=== PATIENT | female | born 1960 | race Caucasian/White ===

== ENCOUNTER → 2017-11-05 14:55 | Outpatient (CLI) | payer OTHER, MEDICAID, SELFPAY ==
[2017-11-05 15:35] LABS: Add Manual Diff / Slide Review NO; Basophils Percent Auto 0.5 % (0-2); Eosinophils Percent Auto 1.4 % (2-4); Hematocrit 42.8 % (36-46); Hemoglobin 14.6 g/dL (12.0-16.0); Lymphocytes Percent Auto 23.6 % (25-40); Mean Corpuscular HGB Conc 34.2 % (30-36); Mean Corpuscular Hemoglobin 29.5 PG (26-34); Mean Corpuscular Volume 86.1 fL (80-100); Monocytes Percent Auto 5.1 % (3-14); Neutrophils Absolute Auto 3900 /uL (3000-5900); Neutrophils Percent Auto 69.4 % (50-75); Platelet Count 229 X10^3/uL (150-400); Red Blood Cell Count 4.97 X10^6/uL (4.0-5.2); Red Cell Distribution Width 13.4 % (11.6-14.8); White Blood Cell Count 5.6 X10^3/uL (4.5-11.0)
[2017-11-07 14:27] LABS: Erythropoietin 8.1 mIU/mL (2.6-18.5)
== END ==
PROVIDERS: PCP Family Medicine; Visit Provider Hospitalist
DX: R06.02 Shortness of breath (principal)
CPT/HCPCS: 36415; 82668; 85025

== ENCOUNTER → 2021-10-25 16:58 | Outpatient (CLI) | payer OTHER, SELFPAY ==
--- NOTE | 2021-10-25 17:00 | DI.MRI.S_ITS ---
PROCEDURE: MR CERVICAL SPINE WO CON INDICATIONS: CHRONIC NECK PAIN TECHNIQUE: Noncontrast sagittal T1 spin echo and T2 fast spin echo, sagittal STIR, foraminal oblique sagittal T2 fast spin echo, and axial gradient echo or T2 fast spin echo through the cervical spine. COMPARISON: None. FINDINGS: Image quality: Excellent. Alignment and Curvature: There is normal bony alignment. Bone Marrow: Marrow demonstrates normal overall signal. Spinal Cord: Visualized spinal cord has normal size and signal. No cerebellar tonsillar herniation. Regional Soft Tissues: No paravertebral masses. Prevertebral soft tissues are normal in thickness. C2-C3: No spinal canal or neural foraminal stenosis. C3-C4: No spinal canal or neural foraminal stenosis. C4-C5: No spinal canal stenosis. Facet and uncovertebral hypertrophy combine to produce moderate-severe bilateral neural foraminal narrowing. C5-C6: Posterior disc osteophyte complex flattens the ventral thecal sac without mass effect upon the cord. Facet and uncovertebral hypertrophy combine to produce moderate to severe bilateral neural foraminal stenosis. C6-C7: Posterior disc osteophyte complex without mass effect upon the cord. Moderate to severe neural foraminal narrowing due to facet and uncovertebral hypertrophy. C7-T1: No spinal canal or neural foraminal stenosis. IMPRESSION: Moderate to severe neural foraminal stenosis bilaterally from C4-C5 through C6-C7. Dictated by: Panda Mares M.D. on 10/26/2021 at 15:20 Approved by: Panda Mares M.D. on 10/26/2021 at 15:22
== END ==
PROVIDERS: PCP Family Medicine; Referring Provider Student in an Organized Health Care Education/Training Program; Visit Provider Student in an Organized Health Care Education/Training Program
DX: M99.51 Intervertebral disc stenosis of neural canal of cervical region (principal); M54.2 Cervicalgia; G89.29 Other chronic pain; V89.2XXD Person injured in unspecified motor-vehicle accident, traffic, subsequent encounter
CPT/HCPCS: 72141

== ENCOUNTER → 2021-11-01 15:40 | Outpatient (CLI) | payer OTHER, SELFPAY ==
--- NOTE | 2021-11-01 15:43 | DI.CT.S_ITS ---
PROCEDURE: CT CERVICAL SPINE WO CON INDICATIONS: Cervicalgia TECHNIQUE: Noncontrast 3 mm thick sections acquired from the skull base to the T4 level. Sagittal and coronal reformats were then constructed. For radiation dose reduction, the following was used: automated exposure control, adjustment of mA and/or kV according to patient size. COMPARISON: [facility], MR, MR CERVICAL SPINE WO CON, 10/25/2021, 17:35. FINDINGS: Image quality: Excellent. Bones: Normal bone mineralization. Vertebral body height alignment is maintained. There is straightening of the normal cervical lordosis. Craniovertebral relationships are normal. At C4-5, there is disc space narrowing present. Hypertrophic uncovertebral joints results in moderate to severe bilateral foraminal stenosis. At C5-6, disc space narrowing present. Osseous central canal is widely patent. Hypertrophic uncovertebral joints associated with moderate to severe bilateral foraminal stenosis. At C6-7, disc space narrowing and small posterior osteophyte present with mild central stenosis of the osseous central canal. Hypertrophic uncovertebral joints associated with moderate to severe bilateral foraminal stenosis. Soft tissues: Prevertebral soft tissues are normal in thickness. No paravertebral hematomas. No apical pneumothoraces. IMPRESSION: 1. 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 on 11/01/2021 at 18:31
== END ==
PROVIDERS: PCP Family Medicine; Referring Provider Student in an Organized Health Care Education/Training Program; Visit Provider Student in an Organized Health Care Education/Training Program
DX: M54.2 Cervicalgia (principal); G89.29 Other chronic pain; V89.2XXD Person injured in unspecified motor-vehicle accident, traffic, subsequent encounter; M47.892 Other spondylosis, cervical region; M48.02 Spinal stenosis, cervical region
CPT/HCPCS: 72125